=== PATIENT | female | born 1980 | race Asian ===

== ENCOUNTER 2016-07-25 02:16 | Inpatient (IN) | payer OTHER ==
[~2016-07-25] VITALS: Ht 162.6 cm; Wt 79.4 kg
[2016-07-25 03:48] LABS: ABSOLUTE BASOPHIL COUNT 0 /CUMM (0.0-0.2); ABSOLUTE EOSINOPHIL COUNT 0 /CUMM (0.0-0.7); ABSOLUTE GRANULOCYTE CT 7.4 /CUMM (1.4-6.5); ABSOLUTE LYMPH COUNT 1.5 /CUMM (1.2-3.4); ABSOLUTE MONOCYTE COUNT 0.7 /CUMM (0.10-0.60); BASOPHIL % 0.3 % (0.0-2.0); EOSINOPHIL % 0.5 % (0-5); HEMATOCRIT 38.2 % (37-47); MEAN CORPUSCULAR HGB 29.1 PG (27.0-31.0); MEAN CORPUSCULAR VOLUME 88.2 FL (81.0-99.0); PLATELET COUNT 153 /CUMM (130-400); RBC DISTRIBUTION WIDTH 14.9 % (11.5-14.5); RED BLOOD CELL CT 4.34 /CUMM (4.20-5.40); WHITE BLOOD CELL COUNT 9.7 /CUMM (4.8-10.8)
--- NOTE | 2016-07-25 10:00 | History & Physical ---
General Information and HPI MD Statement: I have seen and personally examined CARINA RICHARDS and documented this H&P. The patient is a 36 year old female at [39] weeks and [1] days gestation who presented with a chief complaint of [LABOR]. Source of Information: patient Exam Limitations: no limitations History of Present Illness: 36 YEAR OLD @ 39+1 WEEKS PRESENTED OVERNIGHT WITH REGULAR CONTRACTIONS. NO MEMBRANES ON EXAM. AMNIOTOMY SENT AND WAS POSITIVE. PT DID NOT NOTICE ANY LEAKAGE OF FLUID. 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 History : 3 Para: 0 Last Menstrual Period: 5.7.16 Estimated Delivery Date: 07.30.16 Past dry cell sealer History: none Past Pregnancies Past Pregnancies: Date of Delivery: SAB and TOP x 1 Medical History Blood Transfusion Hx: No Neurological: NONE EENT: NONE Cardiovascular: NONE Respiratory: NONE Gastrointestinal: NONE Hepatic: NONE Renal: NONE Musculoskeletal: NONE Psychiatric: NONE Endocrine: NONE Blood Disorders: NONE Cancer(s): NONE [employer]/Reproductive: fibroid, 5x4cm right broad lig myoma Surgical History Pertinent Surgical History: none Past Family/Social History Psychosocial History Smoking Status: Never Smoked Review of Systems Review of Systems EENTM: Reports: no symptoms. Cardiovascular: Reports: no symptoms. Respiratory: Reports: no symptoms. GI: Reports: no symptoms. Genitourinary: Reports: no symptoms. Musculoskeletal: Reports: no symptoms. Skin: Reports: no symptoms. Neurological/Psychological: Reports: no symptoms. Hematologic/Endocrine: Reports: no symptoms. Immunologic/Allergic: Reports: no symptoms. All Other Systems: Reviewed and Negative Exam & Diagnostic Data Last 24 Hrs of Vital Signs/I&O Intake & Output 07/25 1600 07/25 0800 07/25 0000 Intake Total Output Total Balance Patient 175 lb Weight Obstetric Exam Wgt Gained During : 35 Pelvimetry: n/a Dilation (cm): 5 Effacement (%): 80 Station: -1 Membranes: SROM (+amnisure on arrival. unknown ) Fluid: unknown Fundal Height (cm): 39 Multiple Gestation? No Contractions: q5 Infant #1 - FHR Baseline: 130 Category: 1 Estimated Weight: 7lbs Presentation: vtx Patient for Induction? No Physical Exam General Appearance Alert Skin No Rashes, No Breakdown, No Significant Lesion Cardiovascular Regular Rate, Normal S1, Normal S2 Lungs Clear to Auscultation, Normal Air Movement Abdomen Normal Bowel Sounds, No Masses Neurological Normal Gait, Normal Speech, Strength at 5/5 X4 Ext, Normal Tone Extremities No Clubbing, No Cyanosis Vascular Normal Pulses, Pulses Symmetrical Reproductive (FEMALE) Normal female genitalia Labs Blood Type & Rh: Apos Antibody Screen: neg Hct/Hgb & Platelets #1: 13.5 42.5 239 Hct/Hgb & Platelets #2: 11.8 37.2 211 Rubella: NON IMMUNE VDRL #1: neg VDRL #2: neg HbsAg: neg HIV #1: neg HIV #2 neg 1 Hr P Group B Strep: neg Initial Ultrasound: 8W Anatomy Ultrasound: 04.03.16 NL, ANT PLAC, 3VC, XX Ultrasound for EFW: 36W 5'14", @ 36W Genetic Testing: NEG FIRST TRIMESTER SCREEN, NEG AFP, NEG HGB ELEC AND CF Last 24 Hrs of Labs/[place]: Laboratory Tests 07/25/16 0330: CBC w Diff NO MAN DIFF REQ, RBC 4.34, MCV 88.2, MCH 29.1, RDW 14.9 H, MPV 10.0, Gran % 76.0 H, Lymphocytes % 15.5 L, Monocytes % 7.7, Eosinophils % 0.5, Basophils % 0.3, Absolute Granulocytes 7.4 H, Absolute Lymphocytes 1.5, Absolute Monocytes 0.7 H, Absolute Eosinophils 0, Absolute Basophils 0, PUBS MCHC 33.0, Urinalysis LIGHT H, Urine Color YEL, Urine Clarity HAZY H, Urine pH 6.0, Ur Specific [place] 1.020, Urine Protein NEG, Urine Ketones NEG, Urine Nitrite NEG, Urine Bilirubin NEG, Urine Urobilinogen 0.2, Ur Leukocyte Esterase MOD H, Ur Microscopic SEDIMENT EXAMINED, Urine RBC 3-5, Urine WBC 15-25 H, Ur Epithelial Cells MANY H, Urine Mucus FEW, Urine Hemoglobin LARGE H, Urine Glucose NEG Assessment/Plan As Ranked By This Provider Problem List: 1. Core Measures/Miscellaneous Shen Catheter Date In: 07/25/16 Still Needed? No Venous Thromboembolism VTE Risk Factors: / VTE Contraindications: No Contraindications VTE Prophylaxis Ordered Inpt: Early Ambulation VTE Diagnosis: No Beta Norma Is Beta Norma a Home Med? No Antibiotics Is Patient on Antibiotics? No Attending MD Review Statement Attending Statement Attending MD Statement: examined this patient, discussed with family, discussed w/nursing Attending Assessment/Plan: 36 YEAR OLD FEMALE. ACTIVE LABOR AND UNKNOWN TIME OF SROM. GBS NEG. FHT REASSURING. PLAN EPIDURAL, RUPTURE OF FOREBAG. PITOCIN PRN. ANTICIPATE . RUBIVAX PP.
--- NOTE | 2016-07-25 12:41 | PN- OBGYN ---
Surgical Brief Attending Note Brief Attending Note: No complaints. Comfortable with epidural VSS FHTs 120-130s Cat 1 TOCO q5-6 min cvx 6/80/-1/forebag ruptured. amniotomy performed a/p 39+1 weeks. active labor. SROM/AROM of forebag. will augment with pitocin. Anticipate . Rubella vaccine pp.
--- NOTE | 2016-07-25 15:00 | PN- OBGYN ---
Surgical Brief Attending Note Brief Attending Note: NOTIFIED BY RN THAT TEMP 100.3. EARLY DECELS WITH OVERALL REASSURING STRIP. VS:112/69 FHTS 130S CAT 1, OCC EARLY DECELS TOCO Q 2-3 MIN, PITOCIN AT 3MU/MIN CVX: /- A/P 39+1. ACTIVE LABOR . ON PITOCIN AUGMENTATION. FHTS REASSURING. LOW GRADE TEMP. GIVEN UNKNOWN TIME OF RUPTURE OF MEMBRANES, AMPICILLIN X 1 ORDERED. TYLENOL ORDERED. IF NO SIGNIFICANT CERVICAL CHANGE WITH NEXT EXAM, PLAN IUPC
--- NOTE | 2016-07-25 16:21 | PN- OBGYN ---
Surgical Brief Attending Note Brief Attending Note: still comfortable but feels contractions a little more. VSS temp 100.5 [id number] reactive, cta at 1 TOCO q2-3min pitocin at 5mu/min cvx 7/80-90/0 IUPC placed a/p 39+1. active labor. epidural. slow progress continue pitocin as needed. Low grade temp. continue ofirmev, abx.
--- NOTE | 2016-07-25 18:42 | PN- OBGYN ---
Surgical Brief Attending Note Brief Attending Note: Pt examined at 1800. Regular adequate labor with MVUs consistently. Pitocin is at 7mu/min. comfortable s/p rebolus of epidural VS: AF FHTs 130s , cat 1 TOCO q 2 min. Adequate MVUs >200 since 1630 Cvx: 7/ 80-90 anterior slightly edematous/0 a/p 39+1. Labor. Augmentation with pitocin. Adequate labor x 2 hours. Slow progress. No cervical dilation in last 2 hours. Will reeval in one hour. If no cervical change, will advise delivery. Questions answered.
--- NOTE | 2016-07-25 19:20 | PN- OBGYN ---
Surgical Brief Attending Note Brief Attending Note: pt comfortable after re-bolus of epidural Temp 101 FHTs 130s. +STV, +LTV Cat 1-2 TOCO Q2 min , pit at 9mu/min, adequate MVU Cvx:9.5 (ant lip)/80-90/0 a/p 39+1 active labor. pitocin augmentation. maternal fever. Due for another dose of amp. will add gent and clinda.
--- NOTE | 2016-07-25 20:22 | PN- OBGYN ---
Surgical Brief Attending Note Brief Attending Note: c/o pressure. would like to push Temp 101.2 FHT 130s, cat 1 toco: q 2 cvx: ant lip/0 attempt made to push and reduce cervix. irreducible cervix. can try again within 1/2 hour. recc position changes. s/p amp/clinda/. gent pending.
--- NOTE | 2016-07-25 23:45 | Labor & Delivery Summary ---
Delivery Summary Vaginal Delivery: Vaginal: vertex Episiotomy/Lacerations: Episiotomy/Lacerations: 2ND DEGREE, B/L SULCUS, B/L LABIAL LACS Repair: 3-0 POLYSORB Anesthesia: LOCAL AND EPIDURAL Placenta: Placenta: spontanteous, normal, 3 vessel, nuchal cord (x_) Anesthesia: block Apgars - 1 Min: 9 Apgars - 5 Min: 9 Additional Comments: PT PROGRESSED TO FULLY DILATED . PUSHED X 1HOUR AND 45 MIN. DELIVERED HEAD. NUCHAL CORD NOTED BUT PT CONTNIUED TO PUSH . SHOULDERS AND BODY DELIVERED WITHOUT DIFFICULTY. DRIED AND STIMULATED AND BULB SUCTIONED. CORD CLAMPED AND CUT AND PLACED ON MATERNAL ABDOMEN. PLACENTA DELIVERED AND SENT FOR PATH FOR MATERNAL FEVER, UNKNOWN TIME OF ROM. (PT HAD RECEIVED OFFIRMEV AND TRIPLE ABX), PT HAD A SECOND DEGREE LAC, B/L SULCUS TEARS, B/L LABIAL TEARS. PT TOLERATED REPAIR WELL.
[2016-07-26 00:34] VITALS: BP 115/71
[2016-07-26 09:05] LABS: ABSOLUTE EOSINOPHIL COUNT 0 /CUMM (0.0-0.7); ABSOLUTE GRANULOCYTE CT 14.1 /CUMM (1.4-6.5); ABSOLUTE LYMPH COUNT 1.7 /CUMM (1.2-3.4)
[2016-07-26 09:14] LABS: ABSOLUTE BASOPHIL COUNT 0.1 /CUMM (0.0-0.2); ABSOLUTE MONOCYTE COUNT 1.3 /CUMM (0.10-0.60); BASOPHIL % 0.4 % (0.0-2.0); EOSINOPHIL % 0.2 % (0-5); GRANULOCYTE % 81.6 % (42.2-75.2); MEAN CORPUSCULAR HGB 29.5 PG (27.0-31.0); MEAN CORPUSCULAR HGB CONC 33.6 G/DL (33.0-37.0); MEAN CORPUSCULAR VOLUME 87.7 FL (81.0-99.0); PLATELET COUNT 135 /CUMM (130-400); RBC DISTRIBUTION WIDTH 14.9 % (11.5-14.5); RED BLOOD CELL CT 3.35 /CUMM (4.20-5.40)
[2016-07-26 09:37] LABS: WHITE BLOOD CELL COUNT 17.2 /CUMM (4.8-10.8)
[2016-07-26 09:38] LABS: HEMATOCRIT 29.4 % (37-47)
[2016-07-26] MEDS ORDERED: IBUPROFEN800 M1 PO (12:21)
[2016-07-26] MEDS ORDERED: PRENATAL VITAM1 EACH PO (12:21)
[2016-07-26] MEDS ORDERED: FERROUS SULFAT325 M3 PO (12:21)
[2016-07-26] MEDS ORDERED: DOCUSATE SODIU100 M3 PO (12:21)
--- NOTE | 2016-07-26 13:08 | PN- Post Delivery/GYN ---
Subjective Subjective: S.) Doing OK- no longer febrile, but has noted RT leg patch of numbness ant thigh and generalized weakness and instability with walking. (She used epidural in labor- Pushed @ 1 1/2 hr - significant vaginal repair- sulcus tears. Was febrile in labor ( prolonged SROM - on 3 x antibiotics- but afebrile since delivery) Review of Systems: Neg for Cardiac, Pulmonary GI, complaints Objective Last 24 Hrs of Vital Signs/I&O 99.2 VSS P02 99% RA Vital Signs Date Time Temp Pulse Resp B/P Pulse O2 O2 Flow FiO2 Ox Delivery Rate 07/26 0034 115/71 07/26 0000 100.0 07/25 2026 101.2 07/25 1435 100.3 Physical Exam General Appearance Alert, Oriented X3, Cooperative, No Acute Distress Skin No Significant Lesion Cardiovascular Regular Rate Lungs Normal Air Movement Abdomen Soft, No Tenderness, No Hepatospenomegaly, Uterus firm midline nontender 2 FB below umbilicus Neurological Normal Speech, Normal Tone Extremities No Tenderness/Swelling Reproductive (FEMALE) Normal female genitalia Current Medications: Current Medications Sig/Juli Start time Last Medication Dose Route Stop Time Status Admin Acetaminophen 1,000 MG ONCE ONE 07/26 0000 DC 07/25 N/A 1 UNIT IV 07/26 0014 2027 Acetaminophen 650 MG Q4P PRN 07/25 2345 AC 07/26 PO 0759 Acetaminophen 1,000 MG ONCE ONE 07/25 1445 DC 07/25 N/A 1 UNIT IV 07/25 1459 1435 Ampicillin 1,000 MG Q4H 07/25 1900 DC 07/25 Sodium Chloride 100 ML IV 07/26 1529 1927 Ampicillin 2,000 MG ONCE ONE 07/25 1515 DC 07/25 IV 07/25 1516 1506 Ampicillin 2,000 MG ONE TIME ONE 07/25 1500 DC 07/25 PO 07/25 1501 1502 Butorphanol Tartrate 2 MG .STK-MED ONE 07/25 1444 DC IV 07/25 1445 Cefazolin Sodium 2 GM .STK-MED ONE 07/25 1827 DC IV 07/25 1828 Chloroprocaine HCl 30 ML ONCE ONE 07/25 2345 DC 07/25 SC 07/25 2346 2300 Citric Acid/Sodium 30 ML .STK-MED ONE 07/25 1828 DC Citrate PO 07/25 1829 Clindamycin 900 MG ONCE ONE 07/25 190 DC 07/25 Dextrose/Water 50 ML IV 07/25 [id number] Docusate Sodium 100 MG BID PRN 07/25 234 AC PO Gentamicin Sulfate 80 MG ONE ONE 07/25 1900 DC 07/25 Dextrose/Water 100 ML IV 07/25 Hydroxyzine HCl 50 MG AT BEDTIME NEED.. 07/25 2345 AC PO Ibuprofen 800 MG Q6P PRN 07/25 2345 AC PO Lactated Ringer's 1,000 ML Q8H 07/25 0315 AC 07/25 IV 1705 Magnesium Hydroxide 30 ML DAILY PRN 07/25 2345 DC PO 07/26 1001 Oxycodone/ 1 TAB Q3P PRN 07/25 234 AC Acetaminophen PO Oxytocin 20 UNITS Q5H 07/25 2345 DC 07/25 Lactated Ringer's 1,000 ML IV 07/26 0444 2328 Oxytocin 30 UNITS PER PROTOCL 07/25 1245 DC 07/25 Lactated Ringer's 500 ML IV 07/26 1244 1241 Senna 374 MG AT BEDTIME NEED.. 07/25 2345 AC PO 07/26 2346 Last 24 Hrs of Labs/[place]: Laboratory Tests 07/26/16 0835: CBC w Diff NO MAN DIFF REQ, RBC 3.35 L, MCV 87.7, MCH 29.5, RDW 14.9 H, MPV 10.0, Gran % 81.6 H, Lymphocytes % 10.0 L, Monocytes % 7.8, Eosinophils % 0.2, Basophils % 0.4, Absolute Granulocytes 14.1 H, Absolute Lymphocytes 1.7, Absolute Monocytes 1.3 H, Absolute Eosinophils 0, Absolute Basophils 0.1, PUBS MCHC 33.6 Assessment/Plan Assessment/Plan Stable PPD #1- Asked for PT consullt due for numbness and weakness in RT leg- able to ambulate but feels unsteady. PT consult today Reg diet Motrin as needed Carlos Huntley MD Problem List: 1. 2. Chorioamnionitis 3. Term of female 4. Prolong rupt membran-deliv Attending Review Statement Attending Statement Attending MD Statement: examined this patient, discussed with family, discussed with nursing Attending Assessment/Plan: Aileen Huntley MD
[2016-07-27] MEDS ORDERED: LASIX20 M1 PO (13:05)
--- NOTE | 2016-07-27 14:05 | PN- Post Delivery/GYN ---
Subjective Subjective: Ready for going home- doing much better using the walker - has the walker @ home already and out-pt PT also arranged Review of Systems: Neg for CARDIAC, PULMONARY, GI, COMPLAINTS Objective Last 24 Hrs of Vital Signs/I&O AFEBRILE VSS PO2 99% RA Physical Exam General Appearance Alert, Oriented X3, Cooperative, No Acute Distress Skin No Significant Lesion Cardiovascular Regular Rate Lungs Normal Air Movement Abdomen Normal Bowel Sounds, Soft, No Tenderness, No Hepatospenomegaly, FUNDUS 3 FB BELOW UMBILICUS- NONTENDER MIDLINE Neurological Normal Speech, Normal Tone Extremities No Tenderness/Swelling, 3+ EDEMA IN LOWER EXTREMITIES Reproductive (FEMALE) Normal female genitalia, AVGE LOCHIA Current Medications: Current Medications Sig/Juli Start time Last Medication Dose Route Stop Time Status Admin Acetaminophen 650 MG Q4P PRN 07/25 2345 AC 07/26 PO 0759 Docusate Sodium 100 MG BID PRN 07/25 2345 AC PO Hydroxyzine HCl 50 MG AT BEDTIME NEED.. 07/25 2345 AC PO Ibuprofen 800 MG .STK-MED ONE 07/26 205 DC PO 07/26 2058 Ibuprofen 800 MG .STK-MED ONE 07/26 1428 DC PO 07/26 1429 Ibuprofen 800 MG Q6P PRN 07/25 2345 AC 07/26 PO 2102 Lactated Ringer's 1,000 ML Q8H 07/25 0315 AC 07/25 IV 1705 Measles/Mumps/ 1 ADAMARIS ONE ONE 07/27 0745 DC 07/27 Rubella Vaccine Live SC 07/27 0746 1247 Oxycodone/ 1 TAB Q3P PRN 07/25 2345 AC Acetaminophen PO Senna 374 MG AT BEDTIME NEED.. 07/25 2345 DC PO 07/26 2346 Assessment/Plan Assessment/Plan STABLE PPD#2 D/C HOME W/ WALKER AND OUT PT PT MOD PEDAL EDEMA- PO LASIX X 7 DAYS (NL B/P) - DAILY BANANA INTAKE FOR KCl FOLLOW UP @ [facility] ON FRIDAY FOLLOW UP IN 2 WKS @ OFFICE - SOONER IF NOT IMPROVING MONIQUE Problem List: 1. Chorioamnionitis 2. Term of female 3. Prolong rupt membran-deliv 4. Right leg weakness Attending MD Review Statement Attending Statement Attending MD Statement: examined this patient, discussed with family, discussed with nursing Attending Assessment/Plan: Aileen BRADSHAW
== END 2016-07-27 14:11 | DRG 774 ==
LOC: CBCO 02:16 → GNO 02:56
PROVIDERS: Obstetrics & Gynecology; ADMIT Obstetrics & Gynecology
PROC: 0KQM0ZZ Repair Perineum Muscle, Open Approach (ICD-10-PCS; principal; 2016-07-25)
DX: O76 Abnormality in fetal heart rate and rhythm complicating labor and delivery (principal); O75.2 Pyrexia during labor, not elsewhere classified; Z37.0 Single live birth; O69.81X0 Labor and delivery complicated by cord around neck, without compression, not applicable or unspecified; Z3A.39 39 weeks gestation of pregnancy; O70.1 Second degree perineal laceration during delivery
CPT/HCPCS: GNOP; GNOS; 36415; 81001; 84112; 88307; 97110-GO; 97116-GO; 97161-GP; 97530-GO; G0463; J0131; J0290; J0595; J0690; J1580; J7120